=== PATIENT | female | born 1995 | race Hispanic/Latino ===

== ENCOUNTER 2023-03-19 22:04 | Emergency (ER) | payer MEDICAID ==
[~2023-03-19] VITALS: Ht 154.9 cm; Wt 93.0 kg
[2023-03-19 22:28] VITALS: BP 113/72; PULSE 80; RESP 16
== END 2023-03-20 00:02 | disposition left against medical advice (07) ==
LOC: EDH 22:04
DX: R10.9 Unspecified abdominal pain (principal); Z53.21 Procedure and treatment not carried out due to patient leaving prior to being seen by health care provider
CPT/HCPCS: 99281